=== PATIENT | female | born 1980 | race Caucasian/White ===

== ENCOUNTER 2024-03-01 21:04 | Observation (INO) | payer OTHER, SELFPAY ==
--- NOTE | ~2024-03-01 | XR_ITS ---
EXAMINATION: XR ERCP DATE: 03/03/2024 12:59 INDICATION: Choledocholithiasis. TECHNIQUE: 4 spot fluoroscopic images of the right upper quadrant were obtained during endoscopic ret rograde cholangiopancreatography (ERCP). Fluoroscopy exposure time was 249 seconds. COMPARISON: MRCP 03/02/2024 FINDINGS: The endoscope is in the second portion of the duodenum. There is contrast opacification of the common duct and pancreatic duct. There is a pancreatic stent in expected position. IMPRESSION: 1. Pancreatic duct stent in expected position. Please refer to the ERCP procedure note for additional details. Reviewed, dictated and finalized at location A. IMPRESSION: 1. Pancreatic duct stent in expected position. Please refer to the ERCP procedu re note for additional details.
--- NOTE | ~2024-03-01 | MR_ITS ---
EXAMINATION: MR MRCP wo/w con/w 3D wo ind DATE: 03/02/2024 11:08 INDICATION: Abnormal liver function tests. Right upper quadrant abdominal pain. TECHNIQUE: Magnetic resonance imaging (MRI) of the abdomen was performed without and with 14 mL Multi Marjan intravenous contrast. Sequences included coronal T2-weighted FS FSE, coronal T2-weighted FSE, a xial T1-weighted LAVA, coronal FS FIESTA, axial dual-echo T1-weighted SPGR, coronal lava-FLEX, sagitt al T2-weighted FSE, axial T2-weighted FSE, and axial DWI. Thick-slab T2-weighted FSE images were obta ined for magnetic resonance cholangiopancreatography (MRCP). Maximum intensity projection 3-D reconst ructions of the volumetric data were created by the technologist. Postcontrast sequences included cor onal LAVA-flex and time course of axial T1-weighted LAVA. COMPARISON: CT abdomen and pelvis 03/02/2024 FINDINGS: ABDOMEN MRI: There are bilateral breast implants. There are cysts in the liver measuring up to 12 mm. There is mild intrahepatic biliary duct dilatation. There are gallstones in the gallbladder, which i s normal in size. The spleen, pancreas, adrenal glands, and kidneys are normal. There are no dilated loops of bowel. ABDOMEN MRCP: The common duct is mildly dilated to 8 mm. There is a 2 mm stone in the common duct tracie e duct. IMPRESSION: 1. 2 mm stone in the common bile duct. Mild intrahepatic and extrahepatic biliary duct dilatation. 2. Cholelithiasis. Reviewed, dictated and finalized at location A. IMPRESSION: 1. 2 mm stone in the common bile duct. Mild intrahepatic and extrahepatic bili oscar duct dilatation. 2. Cholelithiasis.
--- NOTE | ~2024-03-01 | CT_ITS ---
CT of the Abdomen and Pelvis: Indication: Abdominal pain Technique: 2.5 mm axial scans were obtained through the abdomen and pelvis following intravenous adm inistration of 100 cc of Omnipaque 350. Dose reduction technique was used on this scan by utilizing a utomated exposure control and iterative reconstruction technique. The dose-length product (DLP) was 3 97.06 mGy-cm. Findings: Scans through the lung bases are unremarkable. There is intrahepatic biliary dilatation, dilatation of the common bile duct to 9 mm, as well as dist ention of the gallbladder. No main pancreatic ductal dilatation. No definite obstructing mass clearly identified on this exam. Several small hepatic cysts are present. The spleen, pancreas, adrenals and kidneys are within normal limits. No evidence of aortic aneurysm. No lymphadenopathy. No bowel obstruction or bowel wall thickening. There is no evidence to suggest acute appendicitis. Images through the pelvis were performed. Urinary bladder unremarkable. IUD in place. 2.1 cm left ova екатерина cyst present. No ascites. Impression: Intrahepatic and extra hepatic biliary dilatation, as detailed above. No obstructing mass identified in this exam. MRI/MRCP versus ERCP recommended to further assess for choledocholithiasis, stricture, or subtle obstructing mass. No pancreatic ductal dilatation seen. Reviewed, dictated and finalized at [facility]. Impression: Intrahepatic and extra hepatic biliary dilatation, as detailed above. No obstru cting mass identified in this exam. MRI/MRCP versus ERCP recommended to further assess for choledocholithiasis, stricture, or subtle obstructing mass. No panc reatic ductal dilatation seen.
[2024-03-01 21:06] VITALS: BP 138/52; PULSE 82; RESP 16; TEMP 36.6; O2SAT 100
[2024-03-01 21:23] LABS: Basophils Absolute Auto 0.1 K/mm3 (0.0-0.1); Basophils Percent Auto 0.8 % (0.2-1.2); Eosinophils Absolute Auto 0.1 K/mm3 (0-0.3); Hematocrit 42.4 % (37.0-47.0); Hemoglobin 13.6 g/dL (12.0-15.0); Immature Granulocyte Absolute 0.01 K/mm3 (0.00-0.031); Immature Granulocyte Percent A 0.2 % (0-0.5); Lymphocytes Absolute Auto 2.59 K/mm3 (0.9-3.2); Lymphocytes Percent Auto 38.9 % (18.3-44.2); Mean Corpuscular HGB Conc 32.1 g/dl (32-36); Mean Corpuscular Hemoglobin 28.7 pg (26-34); Mean Corpuscular Volume 89.5 fl (80-100); Mean Platelet Volume 10.2 fl (7.4-10.4); Monocytes Absolute Auto 0.5 K/mm3 (0.1-0.6); Monocytes Percent Auto 7.8 % (2.6-8.5); Neutrophils Absolute Auto 3.4 K/mm3 (1.3-6.7); Neutrophils Percent Auto 50.3 % (45.5-73.1); Platelet Count Result 315 k/mm3 (150-375); Red Blood Count 4.74 M/mm3 (4.2-5.4); Red Cell Distribution Width 12.9 % (11.5-14.5); White Blood Count 6.7 K/mm3 (4.5-10.0)
[2024-03-01 21:36] LABS: Alanine Aminotransferase 333 U/L (6-35); Albumin Level 5.1 g/dL (3.5-5.1); Alkaline Phosphatase 118 U/L (38-126); Anion Gap 8 mmol/L (4-12); Aspartate Amino Transferase 82 U/L (14-36); Bilirubin,Total 0.6 mg/dL (0.2-1.3); Blood Urea Nitrogen 9 mg/dL (7-17); Calcium 9.9 mg/dL (8.4-10.2); Carbon Dioxide 30 mmol/L (22-30); Chloride 101 mmol/L (98-107); Estimated CRCL calculation 72 ml/min; Estimated Glomerular Filt Rate > 60; Glucose 103 mg/dL (65-110); Potassium 3.5 mmol/L (3.4-5.0); Sodium 139 mmol/L (137-145)
[2024-03-01 21:48] LABS: Appearance Urine Clear (Clear); Bilirubin Urine Negative (Negative); Blood Urine Negative (Negative); Color Urine Yellow (Yellow); Glucose Urine UA Negative (Negative); Ketones Urine Trace mg/dL (Negative); Leukocyte Esterase Ur Negative LEU/UL (Negative); Nitrate Urine Negative (Negative); Protein Urine Negative (Negative); Urobilinogen Urine 0.2 mg/dL (<2.0)
[2024-03-01 22:19] LABS: Add Urine Microscopic? NO
[2024-03-01 23:47] VITALS: BP 109/69; PULSE 51; TEMP 36.6; O2SAT 100
--- NOTE | 2024-03-02 01:40 | ED.ABDPAIN ---
HPI - Abdominal Pain General Chief Complaint: Abdominal Pain <WINSTON Bowling Last Filed: 03/02/24 16:59> Stated Complaint: abdominal pain <WINSTON Bowling Last Filed: 03/02/24 16:59> Time Seen by Provider: 03/02/24 01:03 <WINSTON Bowling Last Filed: 03/02/24 16:59> Source: patient <WINSTON Bowling Filed: 03/02/24 16:59> Mode of arrival: ambulatory <WINSTON Bowling Filed: 03/02/24 16:59> Limitations: no limitations <WINSTON Bowling Filed: 03/02/24 16:59> History of Present Illness HPI narrative: Patient is a 44-year-old female who presents the ED with report of right upper quadrant abdominal pain. Patient reports on Thursday night she ate out at a restaurant, had a Micronesian dip sandwich and a few alcoholic drinks. She developed pain in her right upper abdomen that night, which was fairly severe at that time. Radiated around to right mid back. She developed nausea and vomiting with multiple episodes of emesis. She felt better the next day, but developed recurrent pain with any eating. States pain became worse again tonight, which prompted her presentation. Denies fevers. Denies urinary complaints. <WINSTON Bowling Last Filed: 03/02/24 16:59> Related Data Home Medications: Home Medications Medication Instructions Recorded Confirmed No Home Medications 03/02/24 03/02/24 <WINSTON Bowling Last Filed: 03/02/24 16:59> Allergies/Adverse Reactions: Allergies Allergy/AdvReac Type Severity Reaction Status Date / Time No Known Allergies Allergy Verified 03/02/24 08:31 <WINSTON Bowling Last Filed: 03/02/24 16:59> Review of Systems Review of Systems: CONSTITUTIONAL: Denies fever, chills, or sweats. CARDIOVASCULAR: Denies chest pain. RESPIRATORY: Denies dyspnea. GASTROINTESTINAL: See HPI. GENITOURINARY: Denies dysuria or hematuria. MUSCULOSKELETAL: See HPI. <Alicia Chacon PA-C - Last Filed: 03/02/24 16:59> All systems reviewed & are unremarkable except as noted in HPI and below <Alicia Chacon PA-C - Last Filed: 03/02/24 16:59> PMFSH Social History Social History: Social History Smoking status: Former smoker Alcohol intake: never Substance use: never Do You Feel Safe in your Home?: Yes Lack of Transportation: No Lack of Food: Never True Current Housing: I Have Housing Concerned About Future Housing: No Difficulty Paying Gas/Electric Bills: No Difficulty Paying for Meds: No Currently Unemployed: No Education: Master's Degree or Higher Difficulty w/ Childcare or Family Care: No Spiritual care concerns: No <WINSTON Bowling Last Filed: 03/02/24 16:59> Exam Narrative: GENERAL: Well appearing, well-nourished, non-toxic, in no acute distress. HEAD: Normocephalic, atraumatic. RESPIRATORY: Airway patent, respirations nonlabored. Clear to auscultation bilaterally, no rales, rhonchi, wheezing. CARDIOVASCULAR: Regular rate and rhythm without murmurs, rubs, or gallops. ABDOMINAL: Soft, focal moderate tenderness in right upper quadrant, more mild tenderness in epigastric region. Nondistended. Normoactive BS. MUSCULOSKELETAL: Moves all extremities. No gross deformities. SKIN: Warm, dry, normal color. NEURO: A&O X3. Speech clear. Cranial nerves II-XII grossly intact. Steady gait. No ataxic movements. PSYCHIATRIC: Appropriate mood and affect. Normal interaction. <WINSTON Bowling Last Filed: 03/02/24 16:59> Course Vital Signs Vital signs: Vital Signs Temperature 97.9 F 03/01/24 21:06 Pulse Rate 82 03/01/24 21:06 Respiratory Rate 16 03/01/24 21:06 Blood Pressure 138/52 L 03/01/24 21:06 Pulse Oximetry 100 03/01/24 21:06 Oxygen Delivery Room Air 03/01/24 21:06 Temperature 9
[2024-03-02] MEDS: ONDANSETRON INJ 4 MG/2 ML VIAL IV PUSH (01:44)
[2024-03-02] MEDS: SODIUM CHLORIDE 0.9% IV 1,000 ML 999 ML IV CONT (01:44)
[2024-03-02] MEDS: MORPHINE SULFATE (*CRX) 4 MG/ML INJ IV PUSH ×2 (01:44→06:09)
[2024-03-02 01:57] LABS: Lipase 118 U/L (23-300)
[2024-03-02 05:57] VITALS: BP 107/71; PULSE 60; RESP 19; O2SAT 100
--- NOTE | 2024-03-02 06:04 | PC.NURSE ---
EDP Dr. Shaniqua FORTE 4mg IVP morphine.
[2024-03-02 07:25] VITALS: BP 108/72; PULSE 60; RESP 16; O2SAT 100
[2024-03-02 07:30] VITALS: BP 106/61; PULSE 60; RESP 21; TEMP 36.3; O2SAT 100
--- NOTE | 2024-03-02 07:35 | ADMGEN ---
This patient, Shirlene Oden, was admitted to Medical Room 243-01. Patient/family oriented to hospital policies and general routines including ID bracelet, bed and alarms, visiting hours, pain management, procedures, bathroom and other care routines, personal items, smoking policy, room service/diet, and visiting hours. Information on how to activate the Rapid Response Team has been discussed. Patient/Family are encouraged to report perceived risks to care and to ask questions if they do not understand what they are told or what they should do.
--- NOTE | 2024-03-02 09:03 | PM.IMHP ---
H&P: HPI History of Present Illness Date/Time: 03/02/24 09:03 Chief Complaint: right upper quadrant pain Narrative: This is a 44-year-old female with and insignificant past medical history that presented to the ED on 03/02/2024 with complaints of right upper quadrant pain. Patient had developed this pain approximately 4 days prior after she had been out eating in a restaurant and had a couple alcoholic beverages. Her right upper quadrant pain radiates to the midback. Her right upper quadrant pain is associated with nausea and several episodes of emesis. She denies fever. Patient's pain has waxed and waned but mostly prevalent after she eats. Vitals in the ED: BP 138/52, pulse 82, respirations 16, temp 97.9?, O2 sat 100 RA Findings: CBC and BMP and significant findings. Patient did have some elevated LFTs with AST of 82 and ALT 333, total bili 0.6. CT abdomen pelvis showing intrahepatic biliary dilation and dilation of the common bile duct to 9 mm as well as gallbladder distension. Recommendation of MRCP versus ERCP. General surgery and GI consulted on the case. [facility] Social History Social History Smoking status: Former smoker Alcohol intake: never Substance use: never Do You Feel Safe in your Home?: Yes Lack of Transportation: No Lack of Food: Never True Current Housing: I Have Housing Concerned About Future Housing: No Difficulty Paying Gas/Electric Bills: No Difficulty Paying for Meds: No Currently Unemployed: No Education: Master's Degree or Higher Difficulty w/ Childcare or Family Care: No Spiritual care concerns: No Meds Home Medications and Allergies Home Medications Medication Instructions Recorded Confirmed Type No Home Medications 03/02/24 03/02/24 History Allergies Allergy/AdvReac Type Severity Reaction Status Date / Time No Known Allergies Allergy Verified 03/02/24 08:31 Vital Signs Vital Signs - 24 hr 03/01/24 21:06 03/01/24 23:47 03/02/24 05:57 Temperature 97.9 F 97.8 F Pulse Rate 82 51 L 60 Respiratory Rate 16 19 Blood Pressure 138/52 L 109/69 107/71 Pulse Oximetry 100 100 100 Oxygen Delivery Room Air 03/02/24 07:25 Temperature Pulse Rate 60 Respiratory Rate 16 Blood Pressure 108/72 Pulse Oximetry 100 Oxygen Delivery Exam Narrative: GENERAL: Comfortable, no acute distress HENMT: moist mucous membranes EYES: EOM intact b/l NECK: no lymphadenopathy RESPIRATORY: clear to auscultation, no increased respiratory effort CARDIO: Regular rate and rhythm GI: soft, nontender, bowel sounds present SKIN/EXTREMITIES: no rashes, no edema, no redness or tenderness NEURO: PROM intact, answers questions appropriately, A&O x4 H&P: Results Labs Labs: Short CBC 03/01/24 Range/Units 21:16 WBC 6.7 (4.5-10.0) K/mm3 Hgb 13.6 (12.0-15.0) g/dL Hct 42.4 (37.0-47.0) % Plt Count 315 (150-375) k/mm3 BMP 03/01/24 21:16 Sodium 139 Potassium 3.5 Chloride 101 Carbon Dioxide 30 BUN 9 Creatinine 0.80 Glucose 103 Calcium 9.9 Liver Function 03/01/24 Range/Units 21:16 Total Bilirubin 0.6 (0.2-1.3) mg/dL AST 82 H (14-36) U/L ALT 333 H (6-35) U/L Alkaline Phosphatase 118 (38-126) U/L Albumin 5.1 (3.5-5.1) g/dL Urine 03/01/24 Range/Units 21:21 Urine Color Yellow (Yellow) Urine Appearance Clear (Clear) Urine pH 8.0 (5.0-9.0) Ur Specific Omega 1.010 (1.001-1.035) Urine Protein Negative (Negative) mg/dL Urine Glucose (UA) Negative (Negative) mg/dL Assessment and Plan Assessment and plan (1) Dilation of biliary tract: Code(s): K83.8 - Other specified diseases of biliary tract Status: Acute Assessment and Plan: CT abdomen pelvis revealed intrahepatic biliary dilation, dilation of the common bile duct to 9 mm and distension of the gallbladder. Possible concern for
--- NOTE | 2024-03-02 09:25 | PC.NURSE ---
Patient off unit to MRI via wheelchair. Spoke with Jose in MRI regarding patient screening form.
[2024-03-02 09:38] LABS: Hematocrit 40.9 % (37.0-47.0); Hemoglobin 13.2 g/dL (12.0-15.0); Mean Corpuscular HGB Conc 32.3 g/dl (32-36); Mean Corpuscular Hemoglobin 29.1 pg (26-34); Mean Corpuscular Volume 90.3 fl (80-100); Mean Platelet Volume 10.2 fl (7.4-10.4); Platelet Count Result 271 k/mm3 (150-375); Red Blood Count 4.53 M/mm3 (4.2-5.4); Red Cell Distribution Width 13.2 % (11.5-14.5); White Blood Count 5.4 K/mm3 (4.5-10.0)
[2024-03-02 09:55] LABS: Alanine Aminotransferase 264 U/L (6-35); Alkaline Phosphatase 78 U/L (38-126); Anion Gap 3 mmol/L (4-12); Aspartate Amino Transferase 76 U/L (14-36); Bilirubin,Total 0.6 mg/dL (0.2-1.3); Blood Urea Nitrogen 9 mg/dL (7-17); Calcium 9.3 mg/dL (8.4-10.2); Carbon Dioxide 30 mmol/L (22-30); Chloride 105 mmol/L (98-107); Estimated CRCL calculation 72 ml/min; Estimated Glomerular Filt Rate > 60; Glucose 90 mg/dL (65-110); Potassium 4.1 mmol/L (3.4-5.0); Sodium 138 mmol/L (137-145)
--- NOTE | 2024-03-02 10:11 | WPDGICN ---
Assessment and Plan Assessment and plan (1) Dilation of biliary tract: Code(s): K83.8 - Other specified diseases of biliary tract Status: Acute Assessment and Plan: CT abdomen pelvis revealed intrahepatic and extrahepatic biliary dilation, dilation of the common bile duct to 9 mm and distension of the gallbladder with no evidence of choledocholithiasis or obstructing lesion. Underlying choledocholithiasis to be excluded but as she is asymptomatic she certainly could have passed a gallstone at this time. -she is going down for an MRCP at this time. May need ERCP pending MRCP findings. -Further recs pending MRCP (2) RUQ pain: Code(s): R10.11 - Right upper quadrant pain Status: Acute Assessment and Plan: -Right upper quadrant pain waxing and waning with associated nausea and vomiting sounds like a biliary etiology. CT of the abdomen and pelvis noted gallbladder distention. -Asymptomatic at this time -Continue supportive Tx for pain -General surgery has been consulted, appreciate recommendation -MRCP is pending (3) Nausea & vomiting: Code(s): R11.2 - Nausea with vomiting, unspecified Status: Acute Assessment and Plan: Likely due to biliary etiology see above recommend supportive [place] (4) Transaminitis: Code(s): R74.01 - Elevation of levels of liver transaminase levels Status: Acute Assessment and Plan: Elevated AST and ALT with ALT predominance with normal till of bilirubin and alkaline phosphatase No risk factors for hepatitis, drinks alchohol socially Likely secondary to biliary etiology These are already trending down Continue to trend LFTs GI Consult Note Consult date/time: 03/02/24 10:11 Reason for consult: Biliary ductal dilation HPI: Shirlene Oden is a 44 year old female asked to be seen at the request of [facility] ER for biliary dilation. She has no known medical history. Surgical history including abdominal plasty, umbilical hernia with mesh, and . She states on Thursday while out of town she developed sudden onset of epigastric and right upper quadrant pain with radiation to the mid back that was ?the worst pain she has ever felt?. She had associated nausea and vomiting with this and lasted into the evening around 5:00 a.m.. She states both Thursday the pain was still present but not as ?intense and had nausea and 1 episode of vomiting. She states Thursday and Amina she was just tender to the touch but was able to go to work. Then last night after eating dinner after around 10 minutes of eating chicken and veggies she developed the right upper quadrant with radiation to the back that was a get intense with associated nausea and vomiting which then prompted her to be seen in the ER. She denies any symptoms similar to this leading up to Thursday. Denies any GERD or NSAID use. Denies any fevers, jaundice or acholic stools. Denies any melena or hematochezia. She had no bowel habit changes with these symptoms. Denies any chest pain or SOB. Her father had his gallbladder out. She drinks socially and does not smoke. Denies any family hx of chronic liver diseases. Denies any sick or ill contacts. She has never had colonoscopy or EGD. No family hx of GI malignancies. In the ER she had a CT of the abdomen and pelvis that noted intrahepatic and extrahepatic biliary dilation with the common bile duct measuring 9 mm as well as distention of the gallbladder with no pancreatic ductal dilation, small hepatic cyst and 2.1 cm left ovarian cyst (recs reviewed). CBC was normal with a normal white blood cell count and normal lipase. On admission she was noted to have an elevated AST of 82, ALT of 333 with a normal total bilirubin alkaline phosphatase. As of this morning CBC continues to be normal and AST has trended down to 76 and ALT to 264 with continued normalization of T bili and alkaline phosphatase. She is currentl
--- NOTE | 2024-03-02 10:45 | PC.NURSE ---
Patient returned to floor following MRCP. Patient has no complaints at this time.
[2024-03-02] MEDS: ACETAMINOPHEN 325 MG TABLET 650 MG PO (12:45)
[2024-03-02 14:00] VITALS: BP 92/54; PULSE 55; RESP 21; TEMP 36.4; O2SAT 99
--- NOTE | 2024-03-02 14:19 | WPDCN ---
Assessment and Plan Assessment and plan (1) RUQ pain: Code(s): R10.11 - Right upper quadrant pain Status: Acute Assessment and Plan: Likely due to recent episode of choledocholithiasis. No obvious evidence of acute cholecystitis on CT scan or MRCP. Continue supportive management. White blood cell count is normal. GI is planning on ERCP tomorrow. Will likely proceed with laparoscopic cholecystectomy possible conversion open cholecystectomy during this admission likely on Thursday. (2) Transaminitis: Code(s): R74.01 - Elevation of levels of liver transaminase levels Status: Acute Assessment and Plan: Mild elevation in alkaline phosphatase, ALT and AST. Total bili remains normal. Common bile duct stone is not obstructive but still retain the common bile duct. ERCP planned for tomorrow. (3) Choledocholithiasis: Code(s): K80.50 - Calculus of bile duct without cholangitis or cholecystitis without obstruction Status: Acute Assessment and Plan: 2mm nonobstructive common bile duct stone on MRCP. Dr. Amador plans to perform an ERCP tomorrow. Assuming patient as well and stones extracted she does not develop post ERCP pancreatitis then would likely proceed with laparoscopic cholecystectomy possible conversion open cholecystectomy on Thursday. HPI Data of Consult Date/Time: 03/02/24 14:19 Requesting Physician: Sherry Oswald DO Primary Care Provider: UNKNOWN,DOCTOR Consult Narrative Reason for consult: Right upper quadrant epigastric abdominal pain, cholelithiasis Narrative: Shirlene Oden is a 44 year old female who presented to the emergency room earlier today complaining of a 3 to four-day history of worsening epigastric and right abdominal pain. She was afebrile hemodynamics stable in the emergency room. White blood cell count was normal. Liver enzymes slightly increased but her with bilirubin was still normal. She did not appear jaundiced. CT scan abdomen pelvis showed mildly dilated intrahepatic and extrahepatic bile ducts. Gallstones were noted. Lipase was normal without evidence acute pancreatitis. No evidence of acute cholecystitis was seen on imaging. Once on the floor she was very comfortable without having any significant pain. She got an MRCP earlier today showing a retained 2mm common bile duct stone. White blood cell count was still normal. Review of Systems Review of Systems: The remainder of the review of systems to include constitutional, HEENT, cardiovascular, respiratory, GI, , integumentary, musculoskeletal, endocrine, immunologic, hematologic, psychiatric, and neurologic are all negative except for which is mentioned above in the HPI. [facility] Social History Social History Smoking status: Former smoker Alcohol intake: never Substance use: never Do You Feel Safe in your Home?: Yes Lack of Transportation: No Lack of Food: Never True Current Housing: I Have Housing Concerned About Future Housing: No Difficulty Paying Gas/Electric Bills: No Difficulty Paying for Meds: No Currently Unemployed: No Education: Master's Degree or Higher Difficulty w/ Childcare or Family Care: No Spiritual care concerns: No Meds Home Medications and Allergies Home Medications Medication Instructions Recorded Confirmed Type No Home Medications 03/02/24 03/02/24 History Allergies Allergy/AdvReac Type Severity Reaction Status Date / Time No Known Allergies Allergy Verified 03/02/24 08:31 Vital Signs Vital Signs - 24 hr 03/01/24 21:06 03/01/24 23:47 03/02/24 05:57 Temperature 36.6 C 36.6 C Pulse Rate 82 51 L 60 Respiratory Rate 16 19 Blood Pressure 138/52 L 109/69 107/71 Pulse Oximetry 100 100 100 Oxygen Delivery Room Air 03/02/24 07:25 03/02/24 09:00 03/02/24 07:30 Temperature 36.3 C L Pulse Rate 60 60 Respiratory
[2024-03-02 20:18] VITALS: BP 101/54; PULSE 60; RESP 18; TEMP 36.6; O2SAT 100
[2024-03-03] VITALS (16 sets, daily range): BP systolic 91–141; BP diastolic 48–89; PULSE 54–96; RESP 13–20; TEMP 36.4–36.8; O2SAT 99–100
[2024-03-03 05:29] LABS: Hematocrit 40.1 % (37.0-47.0); Mean Corpuscular HGB Conc 32.4 g/dl (32-36); Mean Corpuscular Hemoglobin 29.3 pg (26-34); Mean Corpuscular Volume 90.3 fl (80-100); Mean Platelet Volume 10.8 fl (7.4-10.4); Platelet Count Result 278 k/mm3 (150-375); Red Blood Count 4.44 M/mm3 (4.2-5.4); Red Cell Distribution Width 13.1 % (11.5-14.5)
[2024-03-03 05:40] LABS: Anion Gap 6 mmol/L (4-12); Blood Urea Nitrogen 6 mg/dL (7-17); Calcium 9.3 mg/dL (8.4-10.2); Carbon Dioxide 28 mmol/L (22-30); Chloride 105 mmol/L (98-107); Estimated CRCL calculation 72 ml/min; Estimated Glomerular Filt Rate > 60; Glucose 88 mg/dL (65-110); Potassium 4.3 mmol/L (3.4-5.0); Sodium 139 mmol/L (137-145)
--- NOTE | 2024-03-03 10:48 | PM.PNGS ---
Progress Note: A&P Assessment and Plan (1) RUQ pain: Code(s): R10.11 - Right upper quadrant pain Status: Acute Assessment and Plan: Likely due to recent episode of choledocholithiasis. No obvious evidence of acute cholecystitis on CT scan or MRCP. Continue supportive management. If ERCP is successful and labs tomorrow are stable with no signs of post-ERCP pancreatitis, then we will plan to proceed with a laparoscopic cholecystectomy, possible open, by Dr. Pagan tomorrow. Will follow along. (2) Transaminitis: Code(s): R74.01 - Elevation of levels of liver transaminase levels Status: Acute Assessment and Plan: Mild elevation in alkaline phosphatase, ALT and AST. Total bili remains normal. ERCP planned for today. Trend labs. (3) Choledocholithiasis: Code(s): K80.50 - Calculus of bile duct without cholangitis or cholecystitis without obstruction Status: Acute Assessment and Plan: Found to have a 2mm nonobstructive common bile duct stone on MRCP. ERCP scheduled for today. Will await ERCP results. Plan I have discussed the patient's case and plan of care with Dr. Pagan. Subjective Subjective Date/Time Seen: 03/03/24 10:48 Patient reports: no new complaints, feels better and afebrile Interval history: Patient seen today prior to ERCP. She is feeling better today. No pain at this time. She is NPO for procedure today. Exam Const: General: comfortable and no acute distress GI: Inspection: non-distended GI Palp: Yes Soft to palpation, Yes Tenderness to palpation present (GI) (very minimal RUQ tenderness), No Guarding due to palpation present (GI) and No Rebound tenderness present Auscultation: normal bowel sounds Objective Data Vital Signs Vital Signs: Vital Signs - 24 hr 03/02/24 14:00 03/02/24 20:18 03/03/24 05:17 Temperature 97.6 F 97.8 F 97.5 F L Pulse Rate 55 L 60 68 Respiratory Rate 21 H 18 18 Blood Pressure 92/54 L 101/54 L 91/48 L Pulse Oximetry 99 100 100 Oxygen Delivery 03/03/24 08:45 03/03/24 09:40 Temperature Pulse Rate Respiratory Rate 18 Blood Pressure Pulse Oximetry 100 100 Oxygen Delivery Room Air Room Air Intake/Output Intake/Output: Intake & Output 02/29/24 03/01/24 03/02/24 03/03/24 23:59 23:59 23:59 23:59 Intake Total 2390 0 Balance 2390 0 Meds/Results Medications: Active Medications Generic Name Dose Route Start Last Admin Trade Name Adryanq PRN Reason Stop Dose Admin Acetaminophen 650 mg 03/02/24 09:10 03/02/24 12:45 Acetaminophen 325 Mg Tablet PO 650 mg Q4H PRN Administration Mild Pain (1-3) or Fever Hydrocodone Bitart/Acetaminophen 1 tab 03/02/24 09:10 Hydrocodone/Acetaminophen (*Crx) 5-325 Mg Tablet PO Q6H PRN Pain Rated 4-6 Sodium Chloride 1,000 mls @ 100 mls/hr 03/03/24 07:10 Normal Saline Iv IV CONT .Q10H RADHA Morphine Sulfate 2 mg 03/02/24 09:10 Morphine Sulfate (*Crx) 2 Mg/Ml Inj IV PUSH Q4H PRN Pain Rated 7-10 Ondansetron HCl 4 mg 03/02/24 09:12 Ondansetron Inj 4 Mg/2 Ml Vial IV PUSH Q4H PRN Nausea And Vomiting Radiology Results: ITS Impressions Abdomen/Pelvis CT 03/02/24 05:44 Impression: Intrahepatic and extra hepatic biliary dilatation, as detailed above. No obstructing mass identified in this exam. MRI/MRCP versus ERCP recommended to further assess for choledocholithiasis, stricture, or subtle obstructing mass. No pancreatic ductal dilatation seen. MRCP 03/02/24 11:11 IMPRESSION: 1. 2 mm stone in the common bile duct. Mild intrahepatic and extrahepatic biliary duct dilatation. 2. Cholelithiasis. Labs Labs: Laboratory Results - last 24 hr 03/03/24 04:40 WBC 5.0 RBC 4.44 Hgb 13.0 Hct 40.1 MCV 90.3 MCH 29.3 MCHC 32.4 RDW 13.1 Plt Count 278 MPV 10.8 H Sodium 139 Potassium 4.3 Chloride 105 Carbon Dioxide 28 Anion Gap 6 BUN 6 L Creatinine 0.8
--- NOTE | 2024-03-03 11:07 | PC.NURSE ---
Verbal report give to Anahi MARAVILLA from GI Lab. To GI Lab via wheelchair. Family at bedside.
[2024-03-03] MEDS: LACTATED RINGERS 1,000 ML 150 ML IV CONT (11:14)
--- NOTE | 2024-03-03 11:36 | WPDANESEPPF ---
Anes - Initial Pre Proc Eval Procedure: Operation Date: 03/03/24 11:45 Proposed Procedures p Endoscopic Retro Cholangiopancreatogram - Maynor Bender MD Operation Date: 03/04/24 14:15 Proposed Procedures p Laparoscopic Cholecystectomy, Possible Open - Fernando Pagan MD Date/Time: 03/03/24 11:36 Surgeon: Sherry Oswald DO Pre Op Diagnosis: biliary dilation Patient Data Age: 44 Gender: F Height: 1.68 m Weight: 69 kg Last Vital Signs Temp 97.9 F 03/03/24 11:12 Pulse 65 03/03/24 11:12 Resp 18 03/03/24 11:12 BP 106/67 03/03/24 11:12 Pulse Ox 100 03/03/24 11:12 O2 Del Method Room Air 03/03/24 11:12 Allergies Allergy/AdvReac Type Severity Reaction Status Date / Time No Known Allergies Allergy Verified 03/03/24 11:11 Home Medications Medication Instructions Recorded Confirmed Type No Home Medications 03/02/24 03/02/24 History Laboratory Tests 03/03/24 04:40 WBC 5.0 K/mm3 (4.5-10.0) RBC 4.44 M/mm3 (4.2-5.4) Hgb 13.0 g/dL (12.0-15.0) Hct 40.1 % (37.0-47.0) MCV 90.3 fl (80-100) MCH 29.3 pg (26-34) MCHC 32.4 g/dl (32-36) RDW 13.1 % (11.5-14.5) Plt Count 278 k/mm3 (150-375) MPV 10.8 H fl (7.4-10.4) Sodium 139 mmol/L (137-145) Potassium 4.3 mmol/L (3.4-5.0) Chloride 105 mmol/L (98-107) Carbon Dioxide 28 mmol/L (22-30) Anion Gap 6 mmol/L (4-12) BUN 6 L mg/dL (7-17) Creatinine 0.80 mg/dL (0.7-1.0) Estim Creat Clear Calc 72 ml/min Estimated GFR > 60 (59 - ) Glucose 88 mg/dL (65-110) Calcium 9.3 mg/dL (8.4-10.2) Patient hx anesthesia problems: post op nausea/vomiting (will give intraop antiemetics) Family hx anesthesia problems: none Results Review: All pre-operative results and documents have been reviewed as part of the pre-operative evaluation. [facility] Social History Social History Smoking status: Former smoker Alcohol intake: never Substance use: never Do You Feel Safe in your Home?: Yes Lack of Transportation: No Lack of Food: Never True Current Housing: I Have Housing Concerned About Future Housing: No Difficulty Paying Gas/Electric Bills: No Difficulty Paying for Meds: No Currently Unemployed: No Education: Master's Degree or Higher Difficulty w/ Childcare or Family Care: No Spiritual care concerns: No Anes - Eval Final PreProcedure Day of Procedure 03/03/24 11:36 Patient weight: normal Heart: regular rate and rhythm Lungs: clear to auscultation Airway: Mallampati scale class II Neurological: alert and oriented Last oral intake: >/= 8 hours ASA classification: II Emergent: no Anesthetic plan: proceed Anesthesia type and monitoring: general ETT and standard monitoring Results Review: All pre-operative results and documents have been reviewed as part of the pre-operative evaluation. Informed Consent: The patient's anesthetic plan and its attendant risks and benefits were discussed with the patient/family/POA. Questions were solicited and answers provided to the satisfaction of the patient/family/POA.
[2024-03-03] MEDS: INDOMETHACIN 50 MG SUPP.RECT RECTAL (12:04)
--- NOTE | 2024-03-03 14:10 | PC.NURSE ---
Returned from GI Lab via stretcher.
[2024-03-03] MEDS: SODIUM CHLORIDE 0.9% IV 1,000 ML 100 ML IV CONT ×2 (14:29→20:15)
--- NOTE | 2024-03-03 16:13 | PM.IMPN ---
Progress Note: A&P Assessment and Plan (1) Dilation of biliary tract: Code(s): K83.8 - Other specified diseases of biliary tract Status: Acute Assessment and Plan: CT abdomen pelvis revealed intrahepatic biliary dilation, dilation of the common bile duct to 9 mm and distension of the gallbladder. Possible concern for acute cholecystitis vs choledocholithiasis GI and General surgery consulted. MRCP showing 2 mm stone in common bile duct, cholelithiasis Clear liquid diet analgesics PRN ERCP showing biliary stone. Plan for cholecystectomy tomorrow. (2) Nausea & vomiting: Code(s): R11.2 - Nausea with vomiting, unspecified Status: Acute Assessment and Plan: Likely due to problem #1. Zofran p.r.n. (3) Transaminitis: Code(s): R74.01 - Elevation of levels of liver transaminase levels Status: Acute Assessment and Plan: Concern for possible choledocholithiasis. Continue to trend LFTs. Subjective Date/time seen: 03/03/24 16:13 Interval history: Patient doing well today with no complaints at this time. Plan for cholecystectomy tomorrow. Exam Narrative: GENERAL: Comfortable, no acute distress HENMT: moist mucous membranes EYES: EOM intact b/l NECK: no lymphadenopathy RESPIRATORY: clear to auscultation, no increased respiratory effort CARDIO: Regular rate and rhythm GI: soft, nontender, bowel sounds present SKIN/EXTREMITIES: no rashes, no edema, no redness or tenderness NEURO: PROM intact, answers questions appropriately, A&O x4 Objective Data Vital Signs Vital Signs: Vital Signs - 24 hr 03/02/24 20:18 03/03/24 05:17 03/03/24 08:45 Temperature 97.8 F 97.5 F L Pulse Rate 60 68 Respiratory Rate 18 18 Blood Pressure 101/54 L 91/48 L Pulse Oximetry 100 100 100 Oxygen Delivery Room Air 03/03/24 09:40 03/03/24 11:12 03/03/24 13:04 Temperature 97.9 F 98.2 F Pulse Rate 65 96 Respiratory Rate 18 18 20 Blood Pressure 106/67 125/89 Pulse Oximetry 100 100 100 Oxygen Delivery Room Air Room Air Room Air 03/03/24 13:14 03/03/24 13:24 03/03/24 13:34 Temperature Pulse Rate 90 65 63 Respiratory Rate 19 13 19 Blood Pressure 126/85 126/67 141/68 H Pulse Oximetry 100 100 100 Oxygen Delivery Room Air Room Air Room Air 03/03/24 13:44 03/03/24 13:54 03/03/24 14:04 Temperature Pulse Rate 63 55 L 72 Respiratory Rate 19 15 16 Blood Pressure 140/84 137/75 136/86 Pulse Oximetry 100 100 100 Oxygen Delivery Room Air Room Air Room Air 03/03/24 14:00 03/03/24 15:00 Temperature 98.0 F 97.7 F Pulse Rate 60 70 Respiratory Rate 14 20 Blood Pressure 121/73 121/66 Pulse Oximetry 99 100 Oxygen Delivery Intake/Output Intake/Output: Intake & Output 02/29/24 03/01/24 03/02/24 03/03/24 23:59 23:59 23:59 23:59 Intake Total 2390 200 Balance 2390 200 Meds/Results Medications: Active Medications Generic Name Dose Route Start Last Admin Trade Name Freq PRN Reason Stop Dose Admin Acetaminophen 650 mg 03/02/24 09:10 03/02/24 12:45 Acetaminophen 325 Mg Tablet PO 650 mg Q4H PRN Administration Mild Pain (1-3) or Fever Hydrocodone Bitart/Acetaminophen 1 tab 03/02/24 09:10 Hydrocodone/Acetaminophen (*Crx) 5-325 Mg Tablet PO Q6H PRN Pain Rated 4-6 Sodium Chloride 1,000 mls @ 100 mls/hr 03/03/24 07:10 03/03/24 14:29 Normal Saline Iv IV CONT 100 mls/hr .Q10H RADHA Administration Morphine Sulfate 2 mg 03/02/24 09:10 Morphine Sulfate (*Crx) 2 Mg/Ml Inj IV PUSH Q4H PRN Pain Rated 7-10 Ondansetron HCl 4 mg 03/02/24 09:12 Ondansetron Inj 4 Mg/2 Ml Vial IV PUSH Q4H PRN Nausea And Vomiting Radiology Results: ITS Impressions Abdomen/Pelvis CT 03/02/24 05:44 Impression: Intrahepatic and extra hepatic biliary dilatation, as detailed above. No obstructing mass identified in this exam. MRI/MRCP versus ERCP recommend
[2024-03-03] MEDS: HYDROcodone/acetaminophen (*CRX) 5-325 MG TABLET 1 TAB PO (16:20)
[2024-03-03] MEDS: ACETAMINOPHEN 325 MG TABLET 650 MG PO (20:15)
[2024-03-03] MEDS: MORPHINE SULFATE (*CRX) 2 MG/ML INJ IV PUSH (22:18)
[2024-03-04] VITALS (9 sets, daily range): BP systolic 109–137; BP diastolic 58–118; PULSE 54–110; RESP 14–20; TEMP 36.2–36.9; O2SAT 96–100
[2024-03-04] MEDS: HYDROcodone/acetaminophen (*CRX) 5-325 MG TABLET 1 TAB PO ×2 (00:50→22:26)
[2024-03-04] MEDS: MORPHINE SULFATE (*CRX) 2 MG/ML INJ IV PUSH (04:48)
[2024-03-04 04:58] LABS: Hematocrit 37.8 % (37.0-47.0); Hemoglobin 12.6 g/dL (12.0-15.0); Mean Corpuscular HGB Conc 33.3 g/dl (32-36); Mean Corpuscular Hemoglobin 29.9 pg (26-34); Mean Corpuscular Volume 89.8 fl (80-100); Mean Platelet Volume 10.5 fl (7.4-10.4); Platelet Count Result 276 k/mm3 (150-375); Red Blood Count 4.21 M/mm3 (4.2-5.4); Red Cell Distribution Width 12.8 % (11.5-14.5); White Blood Count 11.8 K/mm3 (4.5-10.0)
[2024-03-04 05:07] LABS: Prothrombin Time 13.4 Seconds (11.1-14.7)
[2024-03-04 05:10] LABS: Alanine Aminotransferase 145 U/L (6-35); Albumin Level 3.7 g/dL (3.5-5.1); Alkaline Phosphatase 76 U/L (38-126); Anion Gap 4 mmol/L (4-12); Aspartate Amino Transferase 25 U/L (14-36); Bilirubin,Total 0.6 mg/dL (0.2-1.3); Blood Urea Nitrogen 5 mg/dL (7-17); Carbon Dioxide 26 mmol/L (22-30); Chloride 106 mmol/L (98-107); Estimated CRCL calculation 94 ml/min; Estimated Glomerular Filt Rate > 60; Glucose 93 mg/dL (65-110); Lipase 868 U/L (23-300); Potassium 3.7 mmol/L (3.4-5.0); Sodium 136 mmol/L (137-145)
[2024-03-04] MEDS: SODIUM CHLORIDE 0.9% IV 1,000 ML 100 ML IV CONT (10:30)
[2024-03-04] MEDS: LACTATED RINGERS 1,000 ML 30 ML IV CONT ×2 (12:30→14:26)
--- NOTE | 2024-03-04 12:46 | WPDANESEPPF ---
Anes - Initial Pre Proc Eval Procedure: Operation Date: 03/03/24 11:45 Proposed Procedures p Endoscopic Retro Cholangiopancreatogram - Maynor Bender MD Operation Date: 03/04/24 13:00 Proposed Procedures p Laparoscopic Cholecystectomy, Possible Open - Fernando Pagan MD Date/Time: 03/04/24 12:46 Surgeon: Sherry Oswald DO Pre Op Diagnosis: biliary dilation Patient Data Age: 44 Gender: F Height: 1.68 m Weight: 69 kg Last Vital Signs Temp 36.2 C L 03/04/24 05:58 Pulse 66 03/04/24 05:58 Resp 18 03/04/24 05:58 BP 127/64 03/04/24 05:58 Pulse Ox 100 03/04/24 05:58 O2 Del Method Room Air 03/04/24 10:30 Allergies Allergy/AdvReac Type Severity Reaction Status Date / Time No Known Allergies Allergy Verified 03/04/24 12:20 Home Medications Medication Instructions Recorded Confirmed Type No Home Medications 03/02/24 03/02/24 History Laboratory Tests 03/04/24 04:21 WBC 11.8 H K/mm3 (4.5-10.0) RBC 4.21 M/mm3 (4.2-5.4) Hgb 12.6 g/dL (12.0-15.0) Hct 37.8 % (37.0-47.0) MCV 89.8 fl (80-100) MCH 29.9 pg (26-34) MCHC 33.3 g/dl (32-36) RDW 12.8 % (11.5-14.5) Plt Count 276 k/mm3 (150-375) MPV 10.5 H fl (7.4-10.4) PT 13.4 Seconds (11.1-14.7) INR 1.0 Sodium 136 L mmol/L (137-145) Potassium 3.7 mmol/L (3.4-5.0) Chloride 106 mmol/L (98-107) Carbon Dioxide 26 mmol/L (22-30) Anion Gap 4 mmol/L (4-12) BUN 5 L mg/dL (7-17) Creatinine 0.60 L mg/dL (0.7-1.0) Estim Creat Clear Calc 94 ml/min Estimated GFR > 60 (59 - ) Glucose 93 mg/dL (65-110) Calcium 9.0 mg/dL (8.4-10.2) Total Bilirubin 0.6 mg/dL (0.2-1.3) AST 25 U/L (14-36) ALT 145 H U/L (6-35) Alkaline Phosphatase 76 U/L (38-126) Total Protein 6.0 L g/dL (6.3-8.2) Albumin 3.7 g/dL (3.5-5.1) Lipase 868 H U/L (23-300) Blood Type O Positive Antibody Screen Negative Patient hx anesthesia problems: post op nausea/vomiting (will give intraop antiemetics) Family hx anesthesia problems: post op nausea/vomiting Results Review: All pre-operative results and documents have been reviewed as part of the pre-operative evaluation. [facility] Social History Social History Smoking status: Former smoker Alcohol intake: never Substance use: never Do You Feel Safe in your Home?: Yes Lack of Transportation: No Lack of Food: Never True Current Housing: I Have Housing Concerned About Future Housing: No Difficulty Paying Gas/Electric Bills: No Difficulty Paying for Meds: No Currently Unemployed: No Education: Master's Degree or Higher Difficulty w/ Childcare or Family Care: No Spiritual care concerns: No Anes - Eval Final PreProcedure Day of Procedure 03/04/24 12:46 Patient weight: normal Heart: regular rate and rhythm Lungs: clear to auscultation Airway: Mallampati scale class II Neurological: alert and oriented Last oral intake: >/= 8 hours ASA classification: II Emergent: no Anesthetic plan: proceed Anesthesia type and monitoring: general GIVS and standard monitoring Results Review: All pre-operative results and documents have been reviewed as part of the pre-operative evaluation. Informed Consent: The patient's anesthetic plan and its attendant risks and benefits were discussed with the patient/family/POA. Questions were solicited and answers provided to the satisfaction of the patient/family/POA.
--- NOTE | 2024-03-04 12:49 | PM.IMPN ---
Progress Note: A&P Assessment and Plan (1) Dilation of biliary tract: Code(s): K83.8 - Other specified diseases of biliary tract Status: Acute Assessment and Plan: CT abdomen pelvis revealed intrahepatic biliary dilation, dilation of the common bile duct to 9 mm and distension of the gallbladder. Possible concern for acute cholecystitis vs choledocholithiasis GI and General surgery consulted. MRCP showing 2 mm stone in common bile duct, cholelithiasis analgesics PRN ERCP showing biliary stone. Cholecystectomy today. Advance diet post-operatively (2) Nausea & vomiting: Code(s): R11.2 - Nausea with vomiting, unspecified Status: Acute Assessment and Plan: Likely due to problem #1. Zofran p.r.n. (3) Transaminitis: Code(s): R74.01 - Elevation of levels of liver transaminase levels Status: Acute Assessment and Plan: Concern for possible choledocholithiasis. Continue to trend LFTs. Subjective Date/time seen: 03/04/24 12:49 Interval history: Patient doing well. She had some pain last night but is since resolved. She denies any current abdominal pain. For cholecystectomy later this afternoon. Will advance diet postoperatively. Exam Narrative: GENERAL: Comfortable, no acute distress HENMT: moist mucous membranes EYES: EOM intact b/l NECK: no lymphadenopathy RESPIRATORY: clear to auscultation, no increased respiratory effort CARDIO: Regular rate and rhythm GI: soft, nontender, bowel sounds present SKIN/EXTREMITIES: no rashes, no edema, no redness or tenderness NEURO: PROM intact, answers questions appropriately, A&O x4 Objective Data Vital Signs Vital Signs: Vital Signs - 24 hr 03/03/24 13:04 03/03/24 13:14 03/03/24 13:24 Temperature 98.2 F Pulse Rate 96 90 65 Respiratory Rate 20 19 13 Blood Pressure 125/89 126/85 126/67 Pulse Oximetry 100 100 100 Oxygen Delivery Room Air Room Air Room Air 03/03/24 13:34 03/03/24 13:44 03/03/24 13:54 Temperature Pulse Rate 63 63 55 L Respiratory Rate 19 19 15 Blood Pressure 141/68 H 140/84 137/75 Pulse Oximetry 100 100 100 Oxygen Delivery Room Air Room Air Room Air 03/03/24 14:04 03/03/24 14:00 03/03/24 15:00 Temperature 98.0 F 97.7 F Pulse Rate 72 60 70 Respiratory Rate 16 14 20 Blood Pressure 136/86 121/73 121/66 Pulse Oximetry 100 99 100 Oxygen Delivery Room Air 03/03/24 19:54 03/03/24 20:00 03/03/24 22:00 Temperature 98.2 F Pulse Rate 54 L 54 L Respiratory Rate 18 18 Blood Pressure 114/56 L Pulse Oximetry 100 100 100 Oxygen Delivery Room Air Room Air 03/04/24 05:58 03/04/24 10:30 Temperature 97.2 F L Pulse Rate 66 Respiratory Rate 18 Blood Pressure 127/64 Pulse Oximetry 100 Oxygen Delivery Room Air Intake/Output Intake/Output: Intake & Output 03/01/24 03/02/24 03/03/24 03/04/24 23:59 23:59 23:59 23:59 Intake Total 2390 1196.7 1000 Balance 2390 1196.7 1000 Meds/Results Medications: Active Medications Generic Name Dose Route Start Last Admin Trade Name Freq PRN Reason Stop Dose Admin Acetaminophen 650 mg 03/02/24 09:10 03/03/24 20:15 Acetaminophen 325 Mg Tablet PO 650 mg Q4H PRN Administration Mild Pain (1-3) or Fever Hydrocodone Bitart/Acetaminophen 1 tab 03/02/24 09:10 03/04/24 00:50 Hydrocodone/Acetaminophen (*Crx) 5-325 Mg Tablet PO 1 tab Q6H PRN Administration Pain Rated 4-6 Fentanyl Citrate 25 mcg 03/04/24 12:46 Fentanyl Citrate Inj (*Crx) 100 Mcg/2 Ml Vial IV PUSH Q2M PRN Pain Sodium Chloride 1,000 mls @ 100 mls/hr 03/03/24 07:10 03/04/24 10:30 Normal Saline Iv IV CONT 100 mls/hr .Q10H RADHA Administration Lactated Ringer's 1,000 mls @ 30 mls/hr 03/04/24 12:50 Lr - Lactated Ringers Iv IV CONT .Q24H RADHA Lactated Ringer's 1,000 mls @ 30 mls/hr 03/04/24 12:50 Lr - Lactated Ringers Iv IV CONT .Q24H RADHA M
--- NOTE | 2024-03-04 12:55 | WPDHPUPDATE1 ---
History and Physical Update Update Date/Time: 03/04/24 12:55 History and Physical has been reviewed, including an updated exam of the patient. There are NO changes in the patient's condition. Risks, benefits, and alternatives have been discussed and questions answered. Patient agrees to proceed with procedure. Patient had abdominal pain due to choledocholithiasis. Has residual cholelithiasis. No evidence of acute cholecystitis. Underwent ERCP with extraction of common bile duct stone and sphincterotomy yesterday. She is doing well and has no evidence of post ERCP pancreatitis. She presents now for a laparoscopic cholecystectomy with possible conversion open cholecystectomy to prevent further episodes of choledocholithiasis. Risks, benefits, indications, and expected outcomes were discussed with the patient and/or family members. Specific risks to include bleeding and possible need for blood transfusion, infection, bile leak, injury to other organs, common bile duct injury, and conversion to open cholecystectomy has been discussed. I have answered all their questions and they agreed to proceed with surgery as outlined above.
[2024-03-04] MEDS: ceFAZolin 2 GM/D5W 50 ML 2 GM/50 ML BAG IVPB (13:04)
[2024-03-04] MEDS: LIDO 1%/EPINEPHRINE 1:100,000 50 ML VIAL 12 ML INFILTRATE (13:40)
[2024-03-04] MEDS: BUPivacaine HCL 0.5% PF 30 ML VIAL 12 ML INFILTRATE (13:41)
[2024-03-04] MEDS: KETOROLAC 30 MG/ML VIAL (*BKC) IV PUSH (14:04)
--- NOTE | 2024-03-04 14:25 | W.PM.PROC2 ---
Procedure Note - Detailed Date of Procedure 03/04/24 Pre-op Diagnosis Cholelithiasis, choledocholithiasis, right upper quadrant abdominal pain, epigastric abdominal pain Post-op Diagnosis Same Procedure Performed Laparoscopic cholecystectomy Surgeon Fernando Pagan MD Social And Political Studies Professor Jessy Stokes [facility] Anesthesia General Indications Patient is a 44-year-old female was admitted to the hospital having severe epigastric right upper abdominal pain. Imaging showed a 2mm retained common bile duct stone some mild dilatation of the intrahepatic and extrahepatic bile ducts. White blood count is normal and liver enzymes were normal. She underwent ERCP with extraction of common bile duct stone. She presents now for a laparoscopic cholecystectomy due to residual cholelithiasis. Findings The gallbladder was distended with some edema of the gallbladder wall but really not all that thickened. There were few adhesions of the omentum to the gallbladder wall. Gallbladder wall is viable without evidence of necrosis or gangrene. Description of Procedure After informed consent was appeared patient brought to the operating room she was placed supine position and general endotracheal anesthesia was administered. The abdomen was then prepped and draped usual sterile fashion. A time-out was then performed correctly identifying the patient as well as confirming the procedure to be performed. No site marking was needed. She was given perioperative IV antibiotics. I then entered the abdomen left upper quadrant utilizing a 5mm Optiview port. Once inside the abdomen insufflated to adequate pneumoperitoneum of 15mmHg of CO2. Looking around the area the umbilicus there were no adhesions in the area. I then placed a 5mm periumbilical trocar port under direct visualization. Laparoscopic was then switched over to the periumbilical trocar port and then looking to the upper portion of the abdomen the gallbladder was dilated and there were few adhesions of the omentum to the gallbladder wall but the inflammation was only minimal. I then placed a 10mm epigastric trocar port and 2 right lateral side 5mm trocar ports in the right subcostal region. The gallbladder was held at the dome with a laparoscopic grasper and then I strip down the omental adhesions to the gallbladder wall. A 2nd grasper was then used to hold gallbladder at the infundibulum. I then continued my dissection of the visceral peritoneum off of the infundibular gallbladder to identify the cystic duct. The cystic duct was then dissected out circumferentially. Cystic artery identified dissected out circumferentially as well. Posterior wall the gallbladder and infundibulum dissected free liver into the critical view was obtained. At this point I then placed 2 clips proximally on the cystic duct and 2 clips distally high on the infundibulum of the gallbladder. The cystic duct was then divided with Endo Guillermo. In a similar fashion cystic artery was then clipped and divided. The gallbladder was resected off the liver electrocautery. The awl was free from liver is placed into an Endo-Catch bag and brought out through the epigastric port site. The gallbladder and contents were sent to pathology for examination. I then irrigated out the right upper quadrant the abdomen and the gallbladder fossa with copious sterile saline solution. Hemostasis was excellent. No evidence of bile leak. I then aspirated the fluid from the right upper quadrant abdomen and the pelvis. I then removed all the trocar ports under direct visualization all port sites appeared hemostatic. I then allowed the abdomen decompressed. The port sites then irrigated subcutaneous tissues and hemostasis was good. I then closed the 10mm epigastric trocar port fascial defect utilizing 0 Vicryl suture in the fascia. The skin edges in all the port sites were then approximated utilizing a running subcuticular 4 Monocryl suture. The incisions were then cleaned the skin gl
--- NOTE | 2024-03-04 15:32 | WPDGIPROGNO ---
Progress Note: A&P Assessment and Plan (1) Choledocholithiasis: Code(s): K80.50 - Calculus of bile duct without cholangitis or cholecystitis without obstruction Status: Acute Assessment and Plan: stone removed after sphincterotomy and sweeping bile duct lap елена today KUB in 3 weeks, if PD stent in place then will schedule EGD to remove (it was placed to prevent pancreatitis) (2) Transaminitis: Code(s): R74.01 - Elevation of levels of liver transaminase levels Status: Acute Assessment and Plan: will expect that will come down (3) RUQ pain: Code(s): R10.11 - Right upper quadrant pain Status: Acute (4) Nausea & vomiting: Code(s): R11.2 - Nausea with vomiting, unspecified Status: Acute (5) Biliary colic: Code(s): K80.50 - Calculus of bile duct without cholangitis or cholecystitis without obstruction Status: Acute Subjective Date/time seen: 03/04/24 11:30 Interval history: ercp yesterady with removal of bile duct stone, also placed PD stent today to OR, she has been doing ok Review of Systems Review of Systems: All systems reviewed & are unremarkable except as noted in HPI and below Exam Const: General: comfortable and no acute distress HENMT: Face/Nose/Sinus: Normal nares present Eyes: General: appearance normal, both eyes and all related structures Neck: Neck: supple Resp: Auscultation: clear to auscultation bilaterally Cardio: Rate: regular rate Rhythm: regular rhythm GI: Inspection: non-distended GI Palp: Yes Soft to palpation and No Guarding due to palpation present (GI) Auscultation: normal bowel sounds Skin: General skin exam: normal color Neuro: General: gait normal Speech: normal speech Extrem: General: normal to inspection Psych: Mental Status: mental status grossly normal Objective Data Vital Signs Vital Signs: Vital Signs - 24 hr 03/03/24 19:54 03/03/24 20:00 03/03/24 22:00 Temperature 98.2 F Pulse Rate 54 L 54 L Respiratory Rate 18 18 Blood Pressure 114/56 L Pulse Oximetry 100 100 100 Oxygen Delivery Room Air Room Air Oxygen Flow Rate 03/04/24 05:58 03/04/24 10:30 03/04/24 14:25 Temperature 97.2 F L 97.8 F Pulse Rate 66 110 H Respiratory Rate 18 19 Blood Pressure 127/64 137/118 H Pulse Oximetry 100 100 Oxygen Delivery Room Air Simple Face Mask Oxygen Flow Rate 03/04/24 14:40 03/04/24 14:55 03/04/24 15:10 Temperature Pulse Rate 78 75 80 Respiratory Rate 16 17 18 Blood Pressure 133/74 125/71 124/70 Pulse Oximetry 100 99 99 Oxygen Delivery Simple Face Mask Room Air Room Air Oxygen Flow Rate 03/04/24 15:25 Temperature Pulse Rate 73 Respiratory Rate 14 Blood Pressure 122/71 Pulse Oximetry 97 Oxygen Delivery Room Air Oxygen Flow Rate Intake/Output Intake/Output: Intake & Output 03/01/24 03/02/24 03/03/24 03/04/24 23:59 23:59 23:59 23:59 Intake Total 2390 1196.7 1050 Balance 2390 1196.7 1050 Meds/Results Medications: Active Medications Generic Name Dose Route Start Last Admin Trade Name Freq PRN Reason Stop Dose Admin Acetaminophen 1,000 mg 03/04/24 14:23 Acetaminophen 500 Mg Tablet PO Q6H PRN Mild Pain (1-3) or Fever Hydrocodone Bitart/Acetaminophen 1 tab 03/04/24 14:23 Hydrocodone/Acetaminophen (*Crx) 5-325 Mg Tablet PO Q4H PRN Pain Rated 4-6 Fentanyl Citrate 25 mcg 03/04/24 12:46 Fentanyl Citrate Inj (*Crx) 100 Mcg/2 Ml Vial IV PUSH Q2M PRN Pain Sodium Chloride 1,000 mls @ 100 mls/hr 03/03/24 07:10 03/04/24 10:30 Normal Saline Iv IV CONT 100 mls/hr .Q10H RADHA Administration Lactated Ringer's 1,000 mls @ 30 mls/hr 03/04/24 12:50 03/04/24 14:25 Lr - Lactated Ringers Iv IV CONT Infused .Q24H RADHA Infusion Lactated Ringer's 1,000 mls @ 30 mls/hr 03/04/24 12:50 03/04/24 14:26 Lr - Lactated Ringers Iv IV CONT 30 mls/hr .Q24H RADHA Administr
[2024-03-05 01:16] VITALS: BP 123/67; PULSE 53; RESP 16; TEMP 36.8; O2SAT 99
[2024-03-05 05:49] LABS: Mean Corpuscular HGB Conc 32.4 g/dl (32-36); Mean Corpuscular Hemoglobin 29.2 pg (26-34); Mean Corpuscular Volume 90.2 fl (80-100); Mean Platelet Volume 10.9 fl (7.4-10.4); Platelet Count Result 228 k/mm3 (150-375); Red Blood Count 3.77 M/mm3 (4.2-5.4); Red Cell Distribution Width 12.9 % (11.5-14.5); White Blood Count 6.8 K/mm3 (4.5-10.0)
[2024-03-05 05:57] LABS: Anion Gap 6 mmol/L (4-12); Blood Urea Nitrogen 5 mg/dL (7-17); Calcium 8.9 mg/dL (8.4-10.2); Carbon Dioxide 23 mmol/L (22-30); Chloride 108 mmol/L (98-107); Estimated CRCL calculation 94 ml/min; Estimated Glomerular Filt Rate > 60; Glucose 82 mg/dL (65-110); Potassium 3.6 mmol/L (3.4-5.0); Sodium 137 mmol/L (137-145)
[2024-03-05] MEDS: HYDROcodone/acetaminophen (*CRX) 5-325 MG TABLET 1 TAB PO (09:51)
--- NOTE | 2024-03-05 13:45 | WPDGIPROGNO ---
Progress Note: A&P Assessment and Plan (1) Choledocholithiasis: Code(s): K80.50 - Calculus of bile duct without cholangitis or cholecystitis without obstruction Status: Acute Assessment and Plan: stone removed after sphincterotomy and sweeping bile duct, then lap елена and recovering doing better, home soon when ok by surgery team [place] in 3 weeks, if PD stent in place then will schedule EGD to remove (it was placed to prevent pancreatitis) (2) Transaminitis: Code(s): R74.01 - Elevation of levels of liver transaminase levels Status: Acute (3) RUQ pain: Code(s): R10.11 - Right upper quadrant pain Status: Acute Assessment and Plan: improved (4) Nausea & vomiting: Code(s): R11.2 - Nausea with vomiting, unspecified Status: Acute Assessment and Plan: resolved (5) Biliary colic: Code(s): K80.50 - Calculus of bile duct without cholangitis or cholecystitis without obstruction Status: Acute Subjective Date/time seen: 03/05/24 13:45 Interval history: she is recovering from surgery, tolerating diet, expected abdominal discomfort from surgery but comfortable and she is in good spirits Review of Systems Review of Systems: All systems reviewed & are unremarkable except as noted in HPI and below Exam Const: General: comfortable and no acute distress HENMT: Face/Nose/Sinus: Normal nares present Eyes: General: appearance normal, both eyes and all related structures Neck: Neck: supple Resp: Auscultation: clear to auscultation bilaterally Cardio: Rate: regular rate Rhythm: regular rhythm GI: Inspection: non-distended GI Palp: Yes Soft to palpation and Yes Tenderness to palpation present (GI) (expected mild pain from recent lap елена) Auscultation: normal bowel sounds Skin: General skin exam: normal color Neuro: General: gait normal Speech: normal speech Extrem: General: normal to inspection Psych: Mental Status: mental status grossly normal Objective Data Vital Signs Vital Signs: Vital Signs - 24 hr 03/04/24 14:25 03/04/24 14:40 03/04/24 14:55 Temperature 97.8 F Pulse Rate 110 H 78 75 Respiratory Rate 19 16 17 Blood Pressure 137/118 H 133/74 125/71 Pulse Oximetry 100 100 99 Oxygen Delivery Simple Face Mask Simple Face Mask Room Air Oxygen Flow Rate 10 10 03/04/24 15:10 03/04/24 15:25 03/04/24 15:40 Temperature Pulse Rate 80 73 61 Respiratory Rate 18 14 14 Blood Pressure 124/70 122/71 127/81 Pulse Oximetry 99 97 96 Oxygen Delivery Room Air Room Air Room Air Oxygen Flow Rate 03/04/24 15:55 03/04/24 20:12 03/04/24 20:00 Temperature 98.4 F Pulse Rate 59 L 54 L Respiratory Rate 15 20 Blood Pressure 129/78 109/58 L Pulse Oximetry 97 100 Oxygen Delivery Room Air Room Air Oxygen Flow Rate 03/05/24 01:16 03/05/24 08:00 Temperature 98.3 F Pulse Rate 53 L Respiratory Rate 16 Blood Pressure 123/67 Pulse Oximetry 99 Oxygen Delivery Room Air Oxygen Flow Rate Intake/Output Intake/Output: Intake & Output 03/02/24 03/03/24 03/04/24 03/05/24 23:59 23:59 23:59 23:59 Intake Total 2390 1196.7 3000 490 Balance 2390 1196.7 3000 490 Meds/Results Medications: Active Medications Generic Name Dose Route Start Last Admin Trade Name Freq PRN Reason Stop Dose Admin Acetaminophen 1,000 mg 03/04/24 14:23 Acetaminophen 500 Mg Tablet PO Q6H PRN Mild Pain (1-3) or Fever Hydrocodone Bitart/Acetaminophen 1 tab 03/04/24 14:23 03/05/24 09:51 Hydrocodone/Acetaminophen (*Crx) 5-325 Mg Tablet PO 1 tab Q4H PRN Administration Pain Rated 4-6 Fentanyl Citrate 25 mcg 03/04/24 12:46 Fentanyl Citrate Inj (*Crx) 100 Mcg/2 Ml Vial IV PUSH Q2M PRN Pain Sodium Chloride 1,000 mls @ 100 mls/hr 03/03/24 07:10 03/04/24 22:05 Normal Saline Iv IV CONT Not Given .Q10H RADHA Morphine Sulfate 2 mg 03/02/24 09:10 03/04/24 04:48 Morphine Randolph
--- NOTE | 2024-03-05 14:49 | PM.PNGS ---
Progress Note: A&P Assessment and Plan (1) Chronic cholecystitis due to cholelithiasis with choledocholithiasis: Code(s): K80.64 - Calculus of gallbladder and bile duct with chronic cholecystitis without obstruction Status: Acute Assessment and Plan: Doing well after ERCP with sphincterotomy and stone extraction 2 days ago. Patient will need a plain film of the abdomen in 3 weeks to see if the biliary stent has passed on its own. She will follow up with Dr. Amador regarding this. Lap choly yesterday was challenging but went well. Patient doing well at this time and okay to discharge from surgical standpoint. Discharge instructions and prescriptions were written. Subjective Subjective Date/Time Seen: 03/05/24 14:49 Post Op day: 1 Patient reports: no new complaints, feels better, pain is less, tolerating a regular diet and afebrile Review of Systems Review of Systems: All systems reviewed & are unremarkable except as noted in HPI and below (HPI) Exam Narrative: Looks great. Abdominal wounds healing well. Patient has been up walking. She is comfortable on oral analgesics. She would like to go home today. H&H a little lower but this is typical after admission and cholecystectomy. Should resolve over time. Objective Data Vital Signs Vital Signs: Vital Signs - 24 hr 03/04/24 14:55 03/04/24 15:10 03/04/24 15:25 Temperature Pulse Rate 75 80 73 Respiratory Rate 17 18 14 Blood Pressure 125/71 124/70 122/71 Pulse Oximetry 99 99 97 Oxygen Delivery Room Air Room Air Room Air 03/04/24 15:40 03/04/24 15:55 03/04/24 20:12 Temperature 36.9 C Pulse Rate 61 59 L 54 L Respiratory Rate 14 15 20 Blood Pressure 127/81 129/78 109/58 L Pulse Oximetry 96 97 100 Oxygen Delivery Room Air Room Air 03/04/24 20:00 03/05/24 01:16 03/05/24 08:00 Temperature 36.8 C Pulse Rate 53 L Respiratory Rate 16 Blood Pressure 123/67 Pulse Oximetry 99 Oxygen Delivery Room Air Room Air Intake/Output Intake/Output: Intake & Output 03/02/24 03/03/24 03/04/24 03/05/24 23:59 23:59 23:59 23:59 Intake Total 2390 1196.7 3000 490 Balance 2390 1196.7 3000 490 Meds/Results Medications: Active Medications Generic Name Dose Route Start Last Admin Trade Name Freq PRN Reason Stop Dose Admin Acetaminophen 1,000 mg 03/04/24 14:23 Acetaminophen 500 Mg Tablet PO Q6H PRN Mild Pain (1-3) or Fever Hydrocodone Bitart/Acetaminophen 1 tab 03/04/24 14:23 03/05/24 09:51 Hydrocodone/Acetaminophen (*Crx) 5-325 Mg Tablet PO 1 tab Q4H PRN Administration Pain Rated 4-6 Fentanyl Citrate 25 mcg 03/04/24 12:46 Fentanyl Citrate Inj (*Crx) 100 Mcg/2 Ml Vial IV PUSH Q2M PRN Pain Sodium Chloride 1,000 mls @ 100 mls/hr 03/03/24 07:10 03/04/24 22:05 Normal Saline Iv IV CONT Not Given .Q10H RADHA Morphine Sulfate 2 mg 03/02/24 09:10 03/04/24 04:48 Morphine Sulfate (*Crx) 2 Mg/Ml Inj IV PUSH 2 mg Q4H PRN Administration Pain Rated 7-10 Ondansetron HCl 4 mg 03/02/24 09:12 Ondansetron Inj 4 Mg/2 Ml Vial IV PUSH Q4H PRN Nausea And Vomiting Ondansetron HCl 4 mg 03/04/24 12:46 Ondansetron Inj 4 Mg/2 Ml Vial IV PUSH ONCE PRN Nausea Oxycodone HCl 5 mg 03/04/24 14:23 Oxycodone Hcl (*Crx) 5 Mg Tab Ir PO Q4H PRN Pain Rated 7-10 Radiology Results: ITS Impressions Abdomen/Pelvis CT 03/02/24 05:44 Impression: Intrahepatic and extra hepatic biliary dilatation, as detailed above. No obstructing mass identified in this exam. MRI/MRCP versus ERCP recommended to further assess for choledocholithiasis, stricture, or subtle obstructing mass. No pancreatic ductal dilatation seen. MRCP 03/02/24 11:11 IMPRESSION: 1. 2 mm stone in the common bile duct. Mild intrahepatic and extrahepatic biliary duct dilatation. 2. Cholelithiasis. Endo Retro Cholangiopancreatogram 03/03/24 15:31
--- NOTE | 2024-03-05 14:57 | PM.DS ---
DS: Admitting Diagnosis Discharge Date 03/05/24 Admitting Diagnosis Dilated common bile duct DS: Discharge Diagnosis Discharge Diagnosis (1) Dilation of biliary tract: Code(s): K83.8 - Other specified diseases of biliary tract Status: Acute (2) Nausea & vomiting: Code(s): R11.2 - Nausea with vomiting, unspecified Status: Acute (3) Transaminitis: Code(s): R74.01 - Elevation of levels of liver transaminase levels Status: Acute DS: Summary Hospital Course Hospital Course: This is a 44-year-old female with? and insignificant past medical history that presented to the ED on 03/02/2024 with complaints of right upper quadrant pain.? Patient had developed this pain approximately 4 days prior after she had been out eating in a restaurant and had a couple alcoholic beverages.? Her right upper quadrant pain radiates to the midback.? Her right upper quadrant pain is associated with nausea and several episodes of emesis.? She denies fever.? Patient's pain has waxed and waned but mostly prevalent after she eats. ED Findings:? CBC and? BMP and significant findings.? Patient did have some elevated LFTs with AST of 82 and ALT 333, total bili 0.6.? CT abdomen pelvis showing intrahepatic? biliary dilation and dilation of the common bile duct to 9 mm as well as gallbladder distension.? General surgery and GI consulted on the case. MRCP showed 2 mm stone in the common bile duct and coli lithiasis. ERCP showing biliary stone. Stone was removed after sphincterotomy and sweeping bile duct. A PD stent was placed. Cholecystectomy performed on 03/04/2024. Patient tolerated the diet well postoperatively. Pain is well controlled. Follow-up with GI for stent removal in 2-3 weeks. her labs and vital signs are stable and she is medically cleared for discharge at this time. Time Spent with Patient Time attestation: Total time spent providing and/or coordinating discharge services: Exam Narrative: GENERAL: Comfortable, no acute distress HENMT: moist mucous membranes EYES: EOM intact b/l NECK: no lymphadenopathy RESPIRATORY: clear to auscultation, no increased respiratory effort CARDIO: Regular rate and rhythm GI: soft, nontender, bowel sounds present SKIN/EXTREMITIES: no rashes, no edema, no redness or tenderness NEURO: PROM intact, answers questions appropriately, A&O x4 DS: Data Data Completed and Pending Pending studies at discharge: Pending at discharge 03/04/24 13:37 Surgical [PTH] Routine Labs on day of discharge: Labs from last 24 hours 03/05/24 03/05/24 04:37 04:36 WBC 6.8 RBC 3.77 L Hgb 11.0 L Hct 34.0 L MCV 90.2 MCH 29.2 MCHC 32.4 RDW 12.9 Plt Count 228 MPV 10.9 H Sodium 137 Potassium 3.6 Chloride 108 H Carbon Dioxide 23 Anion Gap 6 BUN 5 L Creatinine 0.60 L Estim Creat Clear Calc 94 Estimated GFR > 60 Glucose 82 Calcium 8.9 Discharge Plan Discharge Consulting providers: Alicia Chacon; Fernando Pagan; Maynor Bender Discharging Clinician: Chantale Gibbs Anticipated Discharge Date/Time: 03/05/24 14:56 Patient Disposition: Home, Self-Care Activity: may shower, no straining and as tolerated Diet: regular Wound Care Instructions: other - see discharge instructions Discharge Instructions: May discharge home when stable. Follow up with Dr. Pagan in the office in 2 weeks. Patient to call [phone] for an appointment. May shower in 24hours but do not soak incisions under water for 2 weeks. No lifting more than 10 to 15 lb for 2 weeks. May advance diet as tolerated. No driving for at least 3 days or until no longer taking any narcotic pain medication. Resume all home medications. Prescription for pain medications on chart. No need for antibiotics at home for gallbladder. May use Tylenol and or ibuprofen [id number] for pain for surgery if narcotics are not needed. Discharge
== END 2024-03-05 16:40 | disposition home or self-care (01) ==
LOC: ANHED 03-02 03:58 → ANH2MED 03-02 07:19
PROVIDERS: Emergency Medicine; Internal Medicine Critical Care Medicine; Internal Medicine Gastroenterology; Nurse Practitioner Family; Surgery; Admitting Provider Internal Medicine; Emergency Provider Physician Assistant; Visit Provider Internal Medicine
PROC: (CPT 43260; principal; 2024-03-03 11:45)
PROC: 0FT44ZZ Resection of Gallbladder, Percutaneous Endoscopic Approach (ICD-10-PCS; CPT 47562; principal; 2024-03-04 13:00)
DX: K80.50 Calculus of bile duct without cholangitis or cholecystitis without obstruction (principal); K80.10 Calculus of gallbladder with chronic cholecystitis without obstruction; R74.01 Elevation of levels of liver transaminase levels; R11.2 Nausea with vomiting, unspecified; Z87.891 Personal history of nicotine dependence
CPT/HCPCS: 47562; 43264; 43274; 36415; 74177; 74183; 74329; 76376; 80048; 80053; 81003; 81025; 83690; 85025; 85027; 85610; 86850; 86900; 86901; 88304; 96361; 96374; 96375; 96376; 99285; A9270; A9577; G0378; J0330; J0690; J1100; J1170; J1200; J1596; J1885; J2250; J2270; J2371; J2405; J2704; J3010; J7030; J7120; Q9966; Q9967

== ENCOUNTER 2024-04-01 11:47 | Outpatient (CLI) | payer OTHER, SELFPAY ==
--- NOTE | ~2024-04-01 | XR_ITS ---
XR abdomen/kub 1V DATE: 04/01/2024 12:03 INDICATION: Assess whether pancreatic stent is still in position TECHNIQUE: 2 supine AP views of the abdomen and pelvis COMPARISON: 03/03/2024 ERCP FINDINGS: The pancreatic stent noted on 03/03/2024 is now visualized on the sixth KUB An IUD overlies the central pelvis. Nonspecific bowel gas pattern. No evidence of obstruction. Surgical clips, right upper quadrant, consistent with cholecystectomy. IMPRESSION: Pancreatic stent no longer visualized IUD Status post cholecystectomy Nonspecific bowel gas pattern; no apparent obstruction Reviewed, dictated and finalized at [facility] Reviewed, dictated and finalized at [facility].
== END 2024-04-01 11:48 | disposition home or self-care (01) ==
LOC: ANHIMG 11:50
PROVIDERS: Visit Provider Internal Medicine Gastroenterology
DX: K80.50 Calculus of bile duct without cholangitis or cholecystitis without obstruction (principal); Z97.5 Presence of (intrauterine) contraceptive device; Z90.49 Acquired absence of other specified parts of digestive tract
CPT/HCPCS: 74018

== ENCOUNTER 2025-10-11 19:09 | Emergency (ER) | payer OTHER, SELFPAY ==
--- NOTE | 2025-10-11 19:14 | ED_ITS ---
HPI - General Adult General Chief complaint: Upper Respiratory Infection Stated complaint: Sore Throat Time Seen by Provider: 10/11/25 19:14 Source: patient Mode of arrival: ambulatory Limitations: no limitations History of Present Illness HPI narrative: Pt is a 45 y/o female presenting with c/o sore throat. Additional sx reported include rhinorrhea, congestion. Sx began yesterday. Reports her 16 y/o daughter was dx with GABHS on Thursday. No known exposure to COVID, FLU, STREP, PNA however, she is a middle school history teacher. No additional complaints. Related Data Home Medications ?Medication ?Instructions ?Recorded ?Confirmed ?Last Taken ?Type levonorgestrel (Mirena) 1 device intrauterine ONCE 0 11/14/24 11/14/24 Unknown History Allergies Allergy/AdvReac Type Severity Reaction Status Date / Time No Known Allergies Allergy Verified 11/14/24 13:49 Review of Systems 2 Review of Systems: CONSTITUTIONAL: Denies body aches, fever, chills, or sweats. EYES: Denies visual changes, redness, or discharge. ENT: reports rhinorrhea, congestion, sore throat, denies otalgia. CARDIOVASCULAR: Denies chest pain, palpitations, or edema. RESPIRATORY: Denies cough or dyspnea. GASTROINTESTINAL: Denies abdominal pain, nausea, vomiting, or diarrhea. GENITOURINARY: Denies dysuria or hematuria. SKIN: Denies rash, itching, or wounds. MUSCULOSKELETAL: Denies back pain, joint pain, or myalgia. NEUROLOGIC: Denies headache, numbness, tingling, or weakness. PSYCH: Denies depression or anxiety. All systems reviewed & are unremarkable except as noted in HPI and below PMFSH Surgical History Surgical History H/O gynecological procedure Mirena IUD insertion 01/10/2019 History of laparoscopic cholecystectomy 03/04/24 Family History Family History Grandparent Lung cancer Social History Social History (Updated 11/14/24 @ 13:57 by Gill Milan CMA) Smoking status: Former smoker Alcohol intake: current Substance use: never Lack of Transportation: No Lack of Food: Never True Current Housing: I Have Housing Concerned About Future Housing: No Difficulty Paying Gas/Electric Bills: No Difficulty Paying for Meds: No Currently Unemployed: No Education: Master's Degree or Higher Difficulty w/ Childcare or Family Care: No Occupation/Education: occupation Gender identity (if verbalized by the patient): Female Sexual Orientation (if Verbalized by the Patient): Straight or Heterosexual Spiritual care concerns: No Exam Narrative: GENERAL: Well-appearing, well-nourished, and in no acute distress. HEAD: Normocephalic, atraumatic. EYES: EOMI. No redness or drainage. Conjunctivae normal. ENT: Mucous membranes pink and moist. Nares clear. No rhinorrhea. TMs normal bilaterally. Throat normal. Uvula midline. Sinuses are NonTTP. Voice is normal. no trismus. NECK: Normal AROM. Supple. No lymphadenopathy. CHEST: No respiratory distress. Clear to auscultation. HEART: Regular rate and rhythm. No murmur appreciated. Normal peripheral pulses. ABDOMEN: Soft, nontender, nondistended, normal active bowel sounds. MUSCULOSKELETAL: No bony tenderness. EXTREMITIES: Normal range of motion. No edema. SKIN: Warm, dry, no rash. Capillary refill normal. Normal skin turgor. NEURO: No focal deficits. Alert and oriented x3. Gait steady. PSYCH: Normal affect. No signs of depression or anxiety. Course Course Level of Care: Express Care Visit Vital Signs Vital signs: Vital Signs Temperature 98.4 F 10/11/25 19:30 Pulse Rate 70 10/11/25 19:30 Respiratory Rate 16 10/11/25 19:30 Blood Pressure 115/73 10/11/25 19:30 Pulse Oximetry 100 10/11/25 19:30 Temperature 98.4 F 10/11/25 19:30 Pulse Rate 70 10/11/25 19:30 Respiratory Rate 16 10/11/25 19:30 Blood Pressure 115/73 10/11/25 19:30 Pulse Oximetry 100 10/11/25 19:30 [facility] Differential Diagnosis Differential Diagnosis: COVID, flu, strep, pneumonia, other viral URI Lab Data [facility] Lab Attestation statement: I personally reviewed the patient's lab results. Labs: rapid strep neg Discharge Plan Discharge Clinical Impression: Upper respiratory infection Patient Disposition: Home Condition: Stable Instructions: Antibiotic Form, Cold Symptoms (ED) Additional Instructions: Go straight to ER should your symptoms become worse or should any new symptoms develop Patient Language: Mohawk Prescriptions: No Action Mirena 21 mcg/24hr (up to 8 yrs) 52 mg intrauterine device 1 device intrauterine ONCE Rx Instructions: as a single dose Follow-up/Referrals: PHYSICIAN NOT ON STAFF,NONSTAFF [Primary Care Provider] - 10/12/25 Time of Disposition: 19:36
[2025-10-11 19:30] VITALS: BP 115/73; PULSE 70; RESP 16; TEMP 36.9; O2SAT 100
[2025-10-11 20:01] LABS: EDSTREPNEGPOS1 Negative (Negative)
== END 2025-10-11 19:50 | disposition home or self-care (01) ==
PROVIDERS: Emergency Provider Registered Nurse
DX: J06.9 Acute upper respiratory infection, unspecified (principal); Z87.891 Personal history of nicotine dependence
CPT/HCPCS: 87081; 87880; 99213; G0463